=== PATIENT | male | born 1955 | race Caucasian/White ===

== ENCOUNTER 2023-11-27 05:29 | Observation (INO) ==
[~2023-11-27 05:29] MED LIST: Metoclopramide 5 MG/ML VIAL (10 mg) IV PRN; NS 0.45% 1000 ml BAG 1,000 ML IV SCH; Naloxone 0.4 mg VIAL 0.4 mg/ml 1 ml VIAL IV PRN; Ondansetron 4 mg VIAL 2 MG/ML 2 ml VIAL IV PRN; fentaNYL 100 mcg/2 ml 50 MCG/ML VIAL IV PRN
[2023-11-27 06:10] LABS: Rapid COVID-19 Molecular Undetected (Undetected)
[2023-11-27] MEDS ORDERED: Tranexamic Acid 1 GM/100ML BAG 2,000 MG/200 ML BAG IV ONE (06:13)
[2023-11-27] MEDS ORDERED: ceFAZolin 2 GM PREMIX 2 GM/50 ML BAG ONE (06:13)
[2023-11-27] MEDS: Buffered Lidocaine 1% SYRIN 1 ml INTRADERM ONE (06:28)
[2023-11-27] MEDS: Lactated Ringers 1000 ml BAG 1,000 ML IV SCH ×3 (06:28→13:29)
[2023-11-27] MEDS ORDERED: Rocuronium 50 mg VIAL 10 mg/ml 5 ml VIAL (50 mg) ONE (07:10)
[2023-11-27] MEDS ORDERED: Midazolam 2 mg/2 ml VIAL 1 mg/ml 2 ml VIAL (2 mg) ONE (07:11)
[2023-11-27] MEDS ORDERED: fentaNYL 100 mcg/2 ml 50 MCG/ML VIAL ONE (07:11)
[2023-11-27] MEDS ORDERED: ROPIVACAINE 5 MG/ML 30 ML BTL (0.5%) ONE (07:14)
[2023-11-27] MEDS ORDERED: Ondansetron 4 mg VIAL 2 MG/ML 2 ml VIAL ONE (08:31)
[2023-11-27] MEDS ORDERED: Dexamethasone IV 4 MG/ML VIAL 1 ml VIAL ONE (08:31)
[2023-11-27] MEDS ORDERED: Ondansetron 4 mg VIAL 2 MG/ML 2 ml VIAL IV PRN ×3 (10:31→11:58)
[2023-11-27] MEDS ORDERED: Ondansetron ODT 4 mg TAB 4 MG TAB PO PRN ×2 (10:31→11:58)
[2023-11-27] MEDS ORDERED: Lactulose 30 ml UDC PO PRN ×2 (10:31→11:58)
[2023-11-27] MEDS ORDERED: Morphine 2 MG/ML SYRINGE IV PRN ×2 (10:31→11:58)
[2023-11-27] MEDS ORDERED: Magnesium Hydroxide LIQ 30 ML UDC PO PRN ×2 (10:31→11:58)
[2023-11-27] MEDS ORDERED: Calcium Carb (TUMS) 500 mg CHEW TAB PO PRN ×2 (10:31→11:58)
[2023-11-27] MEDS ORDERED: Metoclopramide 5 MG/ML VIAL (10 mg) IV PRN (11:58)
[2023-11-27] MEDS ORDERED: fentaNYL 100 mcg/2 ml 50 MCG/ML VIAL IV PRN (12:00)
[2023-11-27] MEDS ORDERED: Naloxone 0.4 mg VIAL 0.4 mg/ml 1 ml VIAL IV PRN (12:00)
[2023-11-27] MEDS ORDERED: NS 0.45% 1000 ml BAG 1,000 ML IV SCH (12:00)
[2023-11-27] MEDS: Acetaminophen IV 1 GM/100ML 1,000 MG/100 ML BAG IV ONE ×2 (13:28)
[2023-11-27] MEDS: ceFAZolin 2 GM PREMIX 2 GM/50 ML BAG IV SCH ×3 (13:29→17:58)
[2023-11-27] MEDS ORDERED: Magnesium Hydroxide LIQ 30 ML UDC PO SCH (21:00)
[2023-11-27] MEDS: Magnesium Hydroxide LIQ 30 ML UDC PO SCH (23:47)
[2023-11-28 05:38] VITALS: BP 164/79
[2023-11-28 06:14] LABS: Calcium 8.7 mg/dL (8.6-10.3); Creatinine, Serum 0.86 mg/dL (0.67-1.17); Potassium 4.5 mmol/L (3.5-5.0); eGFR CKD-EPI 94.3 (>60)
[2023-11-28] MEDS: Vitamin THERAPEUTIC TAB PO SCH (08:11)
[2023-11-28] MEDS ORDERED: Vitamin THERAPEUTIC TAB PO SCH (09:00)
== END 2023-11-28 10:00 | disposition home or self-care (01) ==
LOC: SSU 05:29 → OR 05:29
PROVIDERS: ADMIT Orthopaedic Surgery Adult Reconstructive Orthopaedic Surgery; ATTEND Orthopaedic Surgery Adult Reconstructive Orthopaedic Surgery